=== PATIENT | female | born 1995 | race Caucasian/White ===

== ENCOUNTER 2020-08-26 13:37 | Emergency (ER) | payer OTHER ==
[~2020-08-26] VITALS: Ht 152.4 cm; Wt 54.4 kg
== END 2020-08-26 16:46 | disposition home or self-care (01) ==
LOC: ER 13:37
DX: R04.0 Epistaxis (principal); Z03.818 Encounter for observation for suspected exposure to other biological agents ruled out

== ENCOUNTER 2020-11-01 18:54 | Emergency (ER) | payer OTHER ==
[~2020-11-01] VITALS: Ht 152.4 cm; Wt 54.4 kg
== END 2020-11-01 22:36 | disposition home or self-care (01) ==
LOC: ER 18:54
DX: B34.9 Viral infection, unspecified (principal); R10.2 Pelvic and perineal pain; D64.9 Anemia, unspecified; Z11.52 Encounter for screening for COVID-19

== ENCOUNTER 2020-11-05 12:57 | Emergency (ER) | payer OTHER ==
[~2020-11-05] VITALS: Ht 152.4 cm; Wt 54.4 kg
== END 2020-11-05 17:00 | disposition home or self-care (01) ==
LOC: ER 12:57
DX: M62.830 Muscle spasm of back (principal); M54.5 Low back pain

== ENCOUNTER 2021-05-24 12:59 | Emergency (ER) | payer OTHER ==
[~2021-05-24] VITALS: Ht 152.4 cm; Wt 59.0 kg
[2021-05-24] MEDS ORDERED: KETO10TA2 PO (16:21)
[2021-05-24] MEDS ORDERED: ZITHROMAX500 MG PO (16:21)
[2021-05-24] MEDS ORDERED: PEPCID AC20 MG PO (16:21)
== END 2021-05-24 16:25 ==
LOC: ER 12:59
DX: J02.9 Acute pharyngitis, unspecified (principal); Z03.818 Encounter for observation for suspected exposure to other biological agents ruled out

== ENCOUNTER 2021-06-05 09:48 | Emergency (ER) | payer OTHER ==
[~2021-06-05] VITALS: Ht 152.4 cm; Wt 59.0 kg
[~2021-06-05 09:48] MED LIST: KETO10TA2 PO; PEPCID AC20 MG PO; ZITHROMAX500 MG PO
[2021-06-05] MEDS ORDERED: NORFLEX100MG PO (14:33)
[2021-06-05] MEDS ORDERED: KETO10TA2 PO (14:33)
== END 2021-06-05 14:48 | disposition home or self-care (01) ==
LOC: ER 09:48
DX: N92.6 Irregular menstruation, unspecified (principal); R10.2 Pelvic and perineal pain

== ENCOUNTER 2022-02-26 20:37 | Emergency (ER) | payer OTHER ==
[~2022-02-26] VITALS: Ht 152.4 cm; Wt 59.4 kg
[~2022-02-26 20:37] MED LIST changes: +NORFLEX100MG PO
== END 2022-02-26 21:52 | disposition home or self-care (01) ==
LOC: ER 20:37
DX: L30.9 Dermatitis, unspecified (principal)

== ENCOUNTER → 2024-10-29 | Emergency (ER) | payer OTHER | END | disposition home or self-care (01) | LOC: ER 10:40 | DX: R10.2 Pelvic and perineal pain (principal) ==